=== PATIENT | female | born 1960 | race Caucasian/White ===

== ENCOUNTER 2018-06-04 18:08 | Emergency (ER) | payer OTHER, MEDICARE ==
[~2018-06-04] VITALS: Ht 167.6 cm; Wt 77.5 kg
[2018-06-04 18:21] VITALS: BP 119/82
[2018-06-04] MEDS ORDERED: METHOCARBAMOL 750 MG TABLET ONE (19:50)
[2018-06-04] MEDS ORDERED: METHOCARBAMOL 750 MG TABLET PO ONE (20:00)
== END 2018-06-04 20:20 | disposition home or self-care (01) ==
LOC: ED 19:58
DX: S13.9XXA Sprain of joints and ligaments of unspecified parts of neck, initial encounter (principal); S00.33XA Contusion of nose, initial encounter; S00.83XA Contusion of other part of head, initial encounter; S00.531A Contusion of lip, initial encounter; S33.5XXA Sprain of ligaments of lumbar spine, initial encounter; Z90.710 Acquired absence of both cervix and uterus; F17.200 Nicotine dependence, unspecified, uncomplicated; V43.51XA Car driver injured in collision with sport utility vehicle in traffic accident, initial encounter; Y93.89 Activity, other specified; Y99.8 Other external cause status; Y92.410 Unspecified street and highway as the place of occurrence of the external cause
CPT/HCPCS: 72050; 72110; 99284